=== PATIENT | male | born 1995 | race Caucasian/White ===

== ENCOUNTER 2019-05-16 | Emergency (ER) | payer MEDICAID ==
[~2019-05-16] VITALS: Ht 193 cm; Wt 90.9 kg
[2019-05-16] MEDS ORDERED: LORazepam 1 MG TABLET PO ONE (02:00)
[2019-05-16 02:41] VITALS: BP 142/87
== END 2019-05-16 03:10 | disposition home or self-care (01) ==
LOC: EMS 00:02
DX: F14.10 Cocaine abuse, uncomplicated (principal); F41.9 Anxiety disorder, unspecified; F17.210 Nicotine dependence, cigarettes, uncomplicated